=== PATIENT | male | born 1990 | race Caucasian/White ===

== ENCOUNTER 2019-05-08 16:20 | Emergency (ER) | payer MEDICAID ==
[~2019-05-08] VITALS: Ht 185.4 cm; Wt 74.8 kg
--- NOTE | 2019-05-08 16:38 | NUR ---
CAME IN FOR RECTAL PAIN x 2 WEEKS, WORST PAIN TODAY. TO ER BED 9, HOOKED TO MONITOR, CHANGED TO GOWN, PROVIDED W WARM BLANKET, AWAITING MD STEEN.
--- NOTE | 2019-05-08 16:50 | NUR ---
PA FOSTER AT BEDSIDE
[2019-05-08] MEDS ORDERED: IV NS 0.9% 1,000 ML BAG IV ONE (17:00)
[2019-05-08 17:04] LABS: APPEARANCE,URINE Clear (CLEAR); KETONES,URINE Negative (NEGATIVE); LEUKOCYTE ESTERASE ,URINE Negative (NEGATIVE); NITRITE, URINE Negative (NEGATIVE); UGLUCOSE Negative (NEGATIVE)
[2019-05-08 17:12] LABS: BASOPHILS # (AUTO) 0.1 /CMM (0.0-0.2); BASOPHILS % (AUTO) 0.9 % (0.0-2.0); EOSINOPHILS % (AUTO) 1.6 % (0.0-6.0); HEMATOCRIT 47 % (39-51); HEMOGLOBIN 15.9 g/dL (13.5-17.5); LYMPHOCYTES # (AUTO) 1.6 /CMM (0.8-4.8); LYMPHOCYTES % (AUTO) 23.2 % (20.0-44.0); MEAN CORPUSCULAR HGB CONC 34 g/dl (31.0-36.0); MEAN CORPUSCULAR VOLUME 93 fL (80-96); MONOCYTES # (AUTO) 0.8 /CMM (0.1-1.30); MONOCYTES % (AUTO) 11.4 % (2.0-12.0); NEUTROPHILS # (AUTO) 4.2 /CMM (1.8-8.9); NEUTROPHILS % (AUTO) 62.9 % (43.0-81.0); PLATELET COUNT (AUTO) 249 /CMM (150-450); RED BLOOD CELL COUNT(AUTO) 5.05 MIL/uL (4.5-6.0); WHITE BLOOD COUNT (AUTO) 6.7 K/uL (4.3-11.0)
[2019-05-08 17:19] LABS: CALCIUM, SERUM 9.2 mg/dL (8.5-10.1); CREATININE 0.8 mg/dL (0.6-1.3); POTASSIUM 4.1 mmol/L (3.5-5.1)
[2019-05-08 17:25] LABS: ALBUMIN 4.2 g/dL (3.4-5.0); BILIRUBIN,DIRECT 0.2 mg/dL (0.0-0.2); BILIRUBIN,TOTAL 0.8 mg/dL (0.2-1.0); TOTAL PROTEIN, SERUM 7.7 g/dL (6.4-8.2)
--- NOTE | 2019-05-08 17:29 | NUR ---
WHEELED OUT VIA WHEELCHAIR FOR CT SCAN.
[2019-05-08] MEDS ORDERED: IOHEXOL-300 100 ML VIAL IV ONE (17:30)
[2019-05-08] MEDS ORDERED: CT SWABBABLE VALVE TRANS SET 1 EA INFUS.SET MC ONE (17:31)
[2019-05-08] MEDS ORDERED: IV NS 0.9% 250 ML IV ONE (17:31)
--- NOTE | 2019-05-08 17:36 | NUR ---
URINE SAMPLE COLLECTED AND SENT TO LAB.
[2019-05-08 17:44] LABS: COLOR,URINE Yellow (YELLOW)
[2019-05-08 17:45] LABS: BILIRUBIN,URINE Negative (NEGATIVE); BLOOD, URINE Negative Ery/uL (NEGATIVE); PROTEIN,URINE Negative (NEGATIVE); UROBILINOGEN,URINE 0.2 EU/dL (0.2)
[2019-05-08] MEDS ORDERED: TRAMADOL HCL 50 MG TABLET ONE (19:14)
--- NOTE | 2019-05-08 19:19 | NUR ---
IV removed. Catheter intact and site benign. Pressure and 4x4 applied to site. No bleeding noted.Patient discharged to home in stable condition. Written and verbal after care instructions given. Patient verbalizes understanding of instruction.
[2019-05-08] MEDS ORDERED: TRAMADOL HCL 50 MG TABLET PO ONE (19:30)
[2019-05-08 19:36] VITALS: BP 139/64
== END 2019-05-08 19:20 | disposition home or self-care (01) ==
LOC: ER 16:31
DX: K64.4 Residual hemorrhoidal skin tags (principal); K62.5 Hemorrhage of anus and rectum; K62.89 Other specified diseases of anus and rectum
CPT/HCPCS: 36415; 74177; 80048; 80076; 81001; 85025; 85730; 99284; J7030; J7050; Q9967; 81000-TC